=== PATIENT | male | born 1990 | race African-American/Black ===

== ENCOUNTER 2017-05-23 12:06 | Emergency (ER) | payer SELFPAY ==
[~2017-05-23] VITALS: Ht 172.7 cm; Wt 72.6 kg
--- NOTE | 2017-05-23 12:08 | NUR ---
PT SHANTE TO ER BED 15. FOUND INSIDE A CAR . STRONG ETOH SMELL. BOTTLE OF VODKA INSIDE THE CAR. GOWNED AND PLACED ON MONITOR. NAD NOTED. AWAITING MD WAITE.
--- NOTE | 2017-05-23 12:46 | NUR ---
RADIOLOGY AT BEDSIDE FOR CHEST XRAY.
[2017-05-23 12:48] LABS: BASOPHILS # (AUTO) 0.1 /CMM (0.0-0.2); BASOPHILS % (AUTO) 2.3 % (0.0-2.0); EOSINOPHILS # (AUTO) 0.1 /CMM (0.0-0.7); EOSINOPHILS % (AUTO) 1.7 % (0.0-6.0); HEMATOCRIT 46 % (39-51); HEMOGLOBIN 15.4 g/dL (13.5-17.5); LYMPHOCYTES # (AUTO) 1.7 /CMM (0.8-4.8); LYMPHOCYTES % (AUTO) 31.9 % (20.0-44.0); MEAN CORPUSCULAR HEMOGLOBIN 30 PG (26.0-33.0); MEAN CORPUSCULAR HGB CONC 33 g/dl (31.0-36.0); MEAN CORPUSCULAR VOLUME 91 fL (80-96); MONOCYTES # (AUTO) 0.3 /CMM (0.1-1.30); MONOCYTES % (AUTO) 6.4 % (2.0-12.0); NEUTROPHILS # (AUTO) 3.1 /CMM (1.8-8.9); NEUTROPHILS % (AUTO) 57.7 % (43.0-81.0); PLATELET COUNT (AUTO) 310 /CMM (150-450); RDW COEFFICIENT OF VARIATION 13.7 (11.5-15.0); RED BLOOD CELL COUNT(AUTO) 5.07 MIL/uL (4.5-6.0); WHITE BLOOD COUNT (AUTO) 5.3 K/uL (4.3-11.0)
--- NOTE | 2017-05-23 12:53 | NUR ---
1L NS GIVEN BOLUS PER ERMD VERBAL ORDER.
[2017-05-23 12:56] LABS: CALCIUM, SERUM 7.9 mg/dL (8.5-10.1); CREATININE 0.8 mg/dL (0.6-1.3); POTASSIUM 5.9 mmol/L (3.5-5.1)
[2017-05-23 13:04] LABS: ALBUMIN 3.5 g/dL (3.4-5.0); BILIRUBIN,TOTAL 0.4 mg/dL (0.2-1.0); TOTAL PROTEIN, SERUM 7.7 g/dL (6.4-8.2)
[2017-05-23 13:10] LABS: SALICYLATE 0.9 mg/dL (2.8-20.0)
[2017-05-23] MEDS ORDERED: IV NS 0.9% 1,000 ML BAG IV ONE (13:30)
--- NOTE | 2017-05-23 16:19 | NUR ---
PT IS AWAKE, VERBALLY RESPONSIVE. AMBULATORY W/ STEADY GAIT. MYRA D/C'D. VERBALLY DISCHARGE BY DR CASTELAN.
[2017-05-23 16:21] VITALS: BP 125/66
== END 2017-05-23 16:22 | disposition home or self-care (01) ==
LOC: EDBD 12:09 → ER 12:09
DX: F10.129 Alcohol abuse with intoxication, unspecified (principal); V43.92XA Unspecified car occupant injured in collision with other type car in traffic accident, initial encounter; Y93.39 Activity, other involving climbing, rappelling and jumping off; Y92.410 Unspecified street and highway as the place of occurrence of the external cause; Y99.8 Other external cause status
CPT/HCPCS: 36415; 71010; 80048; 80076; 80329; 85025; 93005; 99285; A4606; G0480 ×2; J7030; Z7610